=== PATIENT | female | born 1975 | race African-American/Black ===

== ENCOUNTER 2024-09-30 13:49 | Emergency (ER) | payer MEDICAID, OTHER ==
[~2024-09-30] VITALS: Ht 162.6 cm; Wt 70.0 kg
[2024-09-30 14:05] VITALS: BP 144/90; PULSE 71; RESP 18; TEMP 36.6; O2SAT 97
== END 2024-09-30 18:27 | disposition left against medical advice (07) ==
LOC: ER 15:04
DX: F41.9 Anxiety disorder, unspecified (principal); Z53.21 Procedure and treatment not carried out due to patient leaving prior to being seen by health care provider

== ENCOUNTER 2024-10-09 22:57 | Emergency (ER) | payer OTHER ==
[~2024-10-09] VITALS: Ht 162.6 cm; Wt 59.0 kg
[2024-10-09 23:01] VITALS: BP 138/90; PULSE 110; RESP 20; TEMP 36.7; O2SAT 98
== END 2024-10-09 23:43 | disposition left against medical advice (07) ==
LOC: ER 23:14
DX: R51.9 Headache, unspecified (principal); R07.0 Pain in throat; F10.90 Alcohol use, unspecified, uncomplicated; F12.90 Cannabis use, unspecified, uncomplicated; Z53.21 Procedure and treatment not carried out due to patient leaving prior to being seen by health care provider; Y90.9 Presence of alcohol in blood, level not specified